=== PATIENT | male | born 1985 | race Caucasian/White ===

== ENCOUNTER 2018-07-04 13:55 | Emergency (ER) | payer MEDICAID, SELFPAY ==
[2018-07-04 13:56] VITALS: BP 136/86; PULSE 94; RESP 16; TEMP 36.3; O2SAT 97; BMI 31.4
--- NOTE | 2018-07-04 15:02 | CT_ITS ---
STUDY: CT ABDOMEN AND PELVIS WITH CONTRAST REASON FOR EXAM: Male, 32 years old. Pain RADIATION DOSAGE (If Supplied By Facility): CTDIvol = ( 15.00 ) mGy, DLP = ( 1151.34 ) mGycm TECHNIQUE: Transaxial images were obtained from the dome of the diaphragm to the symphysis pubis without oral contrast. 100CC ml of Isovue 300 contrast was administered. Sagittal and coronal images were reconstructed. Individualized dose optimization techniques were used for this CT. COMPARISON: None. FINDINGS: The visualized lung bases are clear. The visualized portions of the heart and pericardium are within normal limits. There are no calcified gallstones present. The liver is within normal limits. There are no suspicious hepatic lesions. The spleen is normal in size. The pancreas is within normal limits. The adrenal glands are within normal limits. There are no renal or ureteral stones. There is no hydronephrosis. There are no focal renal lesions. Normal visualized stomach. There is no bowel obstruction or inflammation. The patient is status post appendectomy. The aorta is normal in caliber. There is no abdominal or pelvic free air, free fluid, fluid collection or lymphadenopathy. There are no destructive osseous lesions. CT/Abdomen/Pelvis WITH Contrast IMPRESSION: No acute abdominal or pelvic pathology. Electronically Signed: Chris Hess, at 17:59 EST Tel , Service support ,
--- NOTE | 2018-07-04 15:03 | ED.VISSUMM ---
- ER Visit Summary Date of Service: 07/04/18 Chief Complaint: Abdominal pain History of Present Illness: The patient is a 32 M presenting with abdominal pain. Patient states this started 3 weeks ago. Pain has been intermittent. He has had vomiting and diarrhea. He states he has had 6 episodes of vomiting today and 2 episodes of diarrhea. He has had no blood in his stool or emesis. He went to urgent care and was sent to the ED for further evaluation. He denies fever. Denies urinary complaints. He has a history of previous appendectomy. Physical Examination: Vitals are stable. Patient is afebrile. Alert no acute distress. HEENT exam is unremarkable. Neck is supple. Lungs are clear and equal bilaterally. Heart is regular rate and rhythm. Abdomen is soft epigastric and left lower quadrant tenderness with no rebound or guarding Extremities are unremarkable. Skin is warm and dry. No focal neurologic deficit. Remainder of exam is unremarkable. Emergency Department Course and Treatment: Patient was given IV fluids, Zofran. CBC shows white count 15.8, chemistries show BUN 24. Liver lipase are normal. Urinalysis unremarkable. CT abdomen pelvis shows no acute process. Patient was given a GI cocktail. On reevaluation, he is feeling improved. He is given prescription for Pepcid and Zofran. Advised to follow-up with Dr. Marshall marine consultant for no doc. Advised return to ED if worsening complaints. Disposition: Discharge home Impression: Abdominal pain; vomiting and diarrhea This note was generated with [employer] dictation software. It may contain incorrect words, spelling, and punctuation that were not noted in review of the chart prior to signing ED Disposition - Plan for ED Patient: Chief Complaint: Abd Pain Instructions: ED Abdominal Pain Unkn Cause Prescriptions: Ondansetron [Zofran Odt] 4 mg PO Q8H PRN PRN #10 tablet PRN Reason: Nausea Famotidine [Pepcid] 20 mg PO BID #28 tablet Referrals: Keira Marshall MD [STAFF PHYSICIAN] - NOT,DEFINED [NON-STAFF] -
[2018-07-04 15:43] LABS: Absolute Lymphocyte Count 1.15 X10^3/ul (0.83-4.51); Absolute Neutrophil Count 13.8 X10^3/uL (2.0-7.7); Basophil# 0.06 X10^3/uL; Basophil% 0.4 % (0-1); Eosinophil# 0.14 X10^3/uL; Eosinophils% 0.9 % (0-5); Lymphocyte # 1.15 X10^3/ul (4.0); Lymphocyte % 7.3 % (19-41); Mean Corp Hgb Conc 33.3 g/gl (32-36); Mean Corpuscular Hgb 28.5 pg (27.0-32.0); Mean Corpuscular Volume 85.4 fL (80-94); Mean Platelet Vol. 8.9 fl (6.2-12.0); Monocyte# 0.61 X10^3/uL; Monocyte% 3.9 % (0-10); Neutrophil # 13.84 X10^3/uL (2.7-7.7); Neutrophil % 87.3 % (47-70); Platelet Count 301 K/mm3 (150-450); RBC Distribution Width CV 13.8 % (11.6-14.6); RBC Distribution Width SD 42.9 fl (35.1-43.9); Red Blood Count 5.62 M/mm3 (4.6-6.2); White Blood Count 15.8 K/mm3 (4.4-11.0)
[2018-07-04 15:45] LABS: POSITIVE COUNT NO; POSITIVE DIFFERENTIAL NO; POSITIVE MORPHOLOGY NO
[2018-07-04 16:06] LABS: AST(SGOT) 18 U/L (15-37); Alanine Aminotransfer ALT/SGPT 43 U/L (16-61); Albumin, Serum 4.2 g/dL (3.2-5.0); Alkaline Phosphatase 102 U/L (45-117); Anion Gap 6 (5-15); BUN 24 mg/dL (7-18); BUN/Creat Ratio 19.5 RATIO (10-20); Bilirubin, Direct 0.13 mg/dL (0.00-0.30); Calcium,Total 9.1 mg/dL (8.5-10.1); Chloride 105 mmol/L (98-107); Creatinine, Serum 1.23 mg/dL (0.70-1.30); EST Glomerular Filtration Rate 72 mL/min (>60); Est Glom Filt Rate - Afr Amer 87 mL/min (>60); Estimated Creatinine Clearance 93.76 ml/min; Glucose 99 mg/dL (74-106); Lipase 328 U/L (73-393); Protein, Total 8.2 g/dL (6.4-8.2); Sodium Level 139 mmol/L (136-145)
[2018-07-04] MEDS: 0.9% Normal Saline 1,000 ML 1000 ML IV (16:21)
[2018-07-04] MEDS: Ondansetron 4 MG/2 ML Vial IV (16:21)
[2018-07-04 16:31] VITALS: BP 139/85; PULSE 87; RESP 16; O2SAT 98
[2018-07-04 17:04] LABS: Bacteria 0 SEEN /hpf (None Seen); Mucous, Urine 0 SEEN /hpf (<or=2+); Red Blood Cells-Urine 0 SEEN /hpf (0-5); Squamous Epithelial Cells - UA 0 SEEN /hpf (0-5); White Blood Cells 0 SEEN /hpf (0-5)
[2018-07-04 17:15] LABS: Color, Urine Yellow (Yellow); Glucose, Dipstick Normal (Normal); Ketone-Dipstick Negative (Negative); Leukocyte Esterase-Dipstick Negative /ul (Negative); Nitrite-Dipstick Negative (Negative); Occult Blood-Urine Negative /ul (Negative); Protein-Dipstick 15 mg/dl (Negative); Urine Bilirubin Dipstick Negative (Negative); Urine Clarity Clear (Clear); Urine Urobilinogen Normal (Normal)
[2018-07-04 18:09] VITALS: RESP 18
--- NOTE | 2018-07-04 18:12 | ED.DEP ---
ED Disposition - Plan for ED Patient: Chief Complaint: Abd Pain Instructions: ED Abdominal Pain Unkn Cause Prescriptions: Ondansetron [Zofran Odt] 4 mg PO Q8H PRN PRN #10 tablet PRN Reason: Nausea Famotidine [Pepcid] 20 mg PO BID #28 tablet Referrals: NOT,DEFINED [NON-STAFF] - Keira Marshall MD [STAFF PHYSICIAN] -
[2018-07-04] MEDS: Mag Hydrox/Al Hydrox/Simeth 30 ML UDC PO (18:37)
== END 2018-07-04 18:38 | disposition home or self-care (01) ==
PROVIDERS: Emergency Provider Emergency Medicine
DX: R10.13 Epigastric pain (principal); R10.32 Left lower quadrant pain; R11.10 Vomiting, unspecified; R19.7 Diarrhea, unspecified; Z72.0 Tobacco use
CPT/HCPCS: 74177; 80048; 80076; 81001; 83690; 85025; 96361; 96374; 99284; J7030; A4216; J2405

== ENCOUNTER 2019-12-12 15:36 | Emergency (ER) | payer MEDICAID, SELFPAY ==
[2019-12-12 15:38] VITALS: BP 131/90; PULSE 80; PULSE 85; RESP 17; TEMP 36.7; O2SAT 97; BMI 27.9
--- NOTE | 2019-12-12 16:02 | EKG12_ITS ---
Test Reason : DYSRHYTHMIA Blood Pressure : / mmHG Vent. Rate : 070 BPM Atrial Rate : 070 BPM P-R Int : 136 ms QRS Dur : 088 ms QT Int : 374 ms P-R-T Axes : 048 059 039 degrees QTc Int : 403 ms Normal sinus rhythm Normal ECG Confirmed by JANY COLLINS, JUSTO ([id number]), offline editor ALEXA BLUE ([id number]) on 12/17/2019 8:04:28 AM Referred By: BB Confirmed By:JUSTO CARMICHAEL MD
--- NOTE | 2019-12-12 16:02 | CT_ITS ---
STUDY: CT BRAIN WITHOUT CONTRAST REASON FOR EXAM: Male, 34 years old. Intermittent hemiparesis. Right-sided numbness. Headache. RADIATION DOSAGE (If Supplied By Facility): CTDIvol = ( 44.99 ) mGy, DLP = ( 812.98 ) mGycm TECHNIQUE: Transaxial CT imaging of the brain was performed without administration of intravenous contrast material. Individualized dose optimization techniques were used for this CT. COMPARISON: No relevant priors. FINDINGS: Normal soft tissue structures. Normal calvarium. Normal size ventricles and extra-axial spaces for the patient''s age. Normal white matter tracts of the cerebral hemispheres. Normal basal ganglia and thalami. Normal brainstem. Normal cerebellum. There is no intracranial hemorrhage. There are no findings of an acute ischemic infarction. Normal visualized paranasal sinuses. CT/Brain/Head without Contrast IMPRESSION: Normal unenhanced CT scan of the brain. If there is continued concern for acute stroke, MRI is recommended. Electronically Signed: Vidal Coats DO at 17:12 EDT Tel [phone], Service support ,
--- NOTE | 2019-12-12 16:06 | ED.DCSUM_ITS ---
History of Present Illness Chief Complaint: Neuro S/Sx Informant: Patient Onset: Days - 4 Context: Sudden Onset Timing: Intermittent, Lasts - sometimes minutes, other times hours Quality and Location: Right Arm Parasthesia, Right Leg Parasthesia, Expressive Aphasia Onset: spontaneously at rest Current Severity: Mild - and left side, not right Maximum Severity: Severe Worsened by: nothing in particular Relieved by: nothing in particular Associated Symptoms: Headache, Nausea. Negative for: Vomiting, Chest Pain Narrative: Patient states he has been having headaches for about 2 years, he calls them migraines. States 4 days ago for the first time he developed neurologic symptoms in context of having 1 of these headaches, he has been having a migraine now for about 2 weeks this episode. He states really the headache has not gone away. He was seen in the ER at a hospital elsewhere in [place] up on [facility] in [place] as a result of the symptoms, 4 days ago, which consisted of weakness and numbness in the right leg and arm, marching from the leg up the body to the arm, followed by right facial droop and an expressive aphasia. He was recommended after negative CT and other test that he be transferred to another hospital where neurology was available, but he did not want to and they ended up leaving, he states he had some nausea medicine that made him feel sleepy and they went home. He has no PCP, he was recommended to follow-up. States over the last 3 or 4 days now since then, the right-sided numbness and sometimes weakness has been coming and going, he has had no recurrence of the speech symptoms, and today he has numbness in his left leg and somewhat on the side of his body but not in his arm or face and no weakness or speech issues. He still has a headache. It is bifrontal and retro-orbital. He denies any head trauma recently. Denies any fevers, COVID-19 diagnosis or respiratory symptoms recently or GI symptoms except a nausea associated with a headache, neck stiffness, or IV drug use. Past Medical History - Allergies and Home Meds Allergies/Adverse Reactions: Allergies No Known Allergies Allergy (Verified 12/12/19 15:36) Primary Care Physician: Care Physician,No Primary [Primary Care Provider] - Doctors: none Past Medical History: None Smoking Status: Former smoker Drugs: Marijuana - occasionally; no other drugs Review of Systems General: Denies: Chills, Fever, Sweats Eyes: Denies: Visual changes - bilaterally, Diplopia ENT: Denies: Bilateral ear pain, Rhinorrhea, Sore throat Cardiovascular: Denies: Chest pain, Palpitations Respiratory: Denies: Dyspnea, Cough, Dyspnea on exertion Gastrointestinal: Reports: Nausea. Denies: Abdominal pain, Vomiting, Diarrhea, Melena, Hematochezia Genitourinary: Denies: Dysuria, Hematuria, Frequency Musculoskeletal: Denies: Neck pain, Back pain, Extremity Pain Skin: Denies: Rash, Wounds Neurological: Reports: Headache, - - see HPI for details of sx STROKE Vital Signs/Narrative: Vital Signs Temp Pulse Resp BP Pulse Ox 12/12/19 15:38 98.0 F 85 17 131/90 H 97 Inital Vital Signs reviewed: Yes - NIHSS Initial 1a Level of Consciousness: 0 1b LOC Questions (Score 2 if aphasic/stupor): 0 1c LOC Commands (Only score 1st attempt): 0 2 Best Gaze (If aphasic, use reflexive mvmts.): 0 3 Visual: 0 4 Facial Palsy: 0 5 Motor Arm Right (UN = amputation/fusion): 0 5 Motor Arm Left: 0 6 Motor Leg Right: 0 6 Motor Leg Left: 0 7 Limb ataxia (Only + if out of proportion): 0 8 Sensory (Aphasia/stupor=0 or 1, coma=2): 1 9 Best Language: 0 10 Dysarthria (mute, coma=2, intubated=UN): 0 11 Extinction and Inattention (only scored if +): 0 Total Score: 1 General: Well nourished, Well developed, - - NAD Head: Normocephalic, Atraumatic Eyes: Perrl, EOMI ENT: Moist mucous membranes, No rhinorrhea Neck: Supple, Nontender, No lymphadenopathy Cardiovascular: Regular rate, Regular rhythm, No murmurs Respiratory: No distress, CTA bilaterally, Chest nontender Abdomen: Soft, Nontender, Nondistended, Normal bowel sounds Back: Nontender, Normal Inspection Extremities: Nontender, No edema Skin: Normal color, No rash Neurological: Alert, Oriented x3, Cranial nerves II-XII grossly intact, Normal Strength, Normal Gait, Parasthesia - LLE mild Psychological: Normal affect, Normal Mood Diagnostic/Tx/Re-eval Clinical Impression(s) from Imaging Studies Brain CT 12/12/19 16:02 IMPRESSION: Normal unenhanced CT scan of the brain. If there is continued concern for acute stroke, MRI is recommended. Electronically Signed: Vidal Coats DO at 17:12 EDT Tel [phone], Service support , Brain MRI 12/12/19 17:53 IMPRESSION: Normal unenhanced MRI of the brain. Electronically Signed: Mak Moncada MD at 20:42 EDT Tel , Service support , Brain MRI 12/12/19 17:53 IMPRESSION: Normal unenhanced MRV of the brain. Electronically Signed: Mak Moncada MD at 20:39 EDT Tel , Service support , Laboratory Results 12/12/19 12/12/19 12/12/19 16:15 16:15 16:15 WBC 7.5 RBC 5.54 Hgb 15.7 Hct 48.3 MCV 87.2 MCH 28.3 MCHC 32.5 RDW Std Deviation 42.0 RDW Coeff of Esa 13.2 Plt Count 298 MPV 9.1 Immature Gran % (Auto) 0.400 Neut % (Auto) 58.3 Lymph % (Auto) 31.7 Green % (Auto) 7.6 Eos % (Auto) 1.3 Baso % (Auto) 0.7 Absolute Neuts (auto) 4.4 Absolute Lymphs (auto) 2.39 Nucleated RBC % 0 PT 12.0 INR 0.9 APTT 31.2 Sodium 140 Potassium 3.8 Chloride 106 Carbon Dioxide 28.0 Anion Gap 6 BUN 20 H Creatinine 1.09 Estim Creat Clear Calc 113.05 Est GFR (MDRD) Af Amer 99 Est GFR (MDRD) Non-Af 82 BUN/Creatinine Ratio 18.3 Glucose 99 Calcium 8.9 Troponin I < 0.015 - Rhythm Strip Rhythm Strip: Sinus Rhythm Rate: 70 Ectopy: None - EKG Initial EKG Interpretation: Sinus Rhythm, No Acute Injury Pattern - normal EKG - Medical Decision Making Stroke Team Activated: No - sx over 24 hrs Was Patient considered for Endovascular Intervention?: No IV Alteplase (t-PA) Administered: No - timing Work-up is negative/unremarkable including CT of the head/brain. My suspicion is that the patient is having neurologic symptoms from migraine, however he has been having his headaches for 2 years and never had neurologic symptoms until 4 days ago. Tele-neurology consult was obtained. They recommend getting MRI of the brain without contrast and MRV to rule out acute neurologic foci as well as venous dural thrombosis. If negative, the patient would be able to be safely discharged home with follow-up. Therefore, I thought to obtain a stat MRI/MRV without admitting the patient first since the tech was still there. This was obtained, as above both are normal. Patient was feeling better after Toradol and Reglan until the MRI and the noise that the machine made, which made his headache feel worse. He is otherwise doing well. No vomiting. He will be given a oral Phenergan prior to discharge, as well as a prescription for Reglan and will follow-up with neurology as an outpatient. He is comfortable with that plan. ED Disposition - Plan for ED Patient: Disposition: Home or Assisted Living Diagnosis: Headache, hemiplegic migraine Instructions: ED, Migraine (Classical) Prescriptions: Metoclopramide [Reglan] 10 mg PO Q6H PRN #20 tab PRN Reason: Headache and/or nausea Transmission Status: Pending to [id number] Referrals: Israel Moore MD [STAFF PHYSICIAN] - (call for appt)
[2019-12-12] MEDS: Ketorolac 15 MG/ML Vial IV (16:25)
[2019-12-12] MEDS: Metoclopramide 10 MG/2 ML Vial 5 MG IV (16:25)
[2019-12-12 16:46] LABS: Absolute Lymphocyte Count 2.39 X10^3/uL (0.83-4.51); Absolute Neutrophil Count 4.4 X10^3/uL (2.0-7.7); Basophil# 0.05 X10^3/uL; Basophil% 0.7 % (0-1); Eosinophils% 1.3 % (0-5); Hematocrit 48.3 % (40-54); Hemoglobin 15.7 g/dL (13.0-16.5); Lymphocyte # 2.39 X10^3/ul (4.0); Lymphocyte % 31.7 % (19-41); Mean Corp Hgb Conc 32.5 g/dL (32-36); Mean Corpuscular Hgb 28.3 pg (27.0-32.0); Mean Corpuscular Volume 87.2 fL (80-94); Mean Platelet Vol. 9.1 fl (6.2-12.0); Monocyte# 0.57 X10^3/uL; Monocyte% 7.6 % (0-10); NRBC Flagged by Analyzer 0 % (0-5); Neutrophil % 58.3 % (47-70); Platelet Count 298 K/mm3 (150-450); RBC Distribution Width CV 13.2 % (11.6-14.6); Red Blood Count 5.54 M/mm3 (4.6-6.2); White Blood Count 7.5 K/mm3 (4.4-11.0)
[2019-12-12 16:49] LABS: Anion Gap 6 (5-15); BUN 20 mg/dL (7-18); BUN/Creat Ratio 18.3 RATIO (10-20); Calcium,Total 8.9 mg/dL (8.5-10.1); Chloride 106 mmol/L (98-107); Creatinine, Serum 1.09 mg/dL (0.70-1.30); EST Glomerular Filtration Rate 82 mL/min (>60); Est Glom Filt Rate - Afr Amer 99 mL/min (>60); Estimated Creatinine Clearance 113.05 ml/min; Glucose 99 mg/dL (74-106); Potassium 3.8 mmol/L (3.5-5.1); Sodium Level 140 mmol/L (136-145)
[2019-12-12 16:59] VITALS: O2SAT 98
[2019-12-12 17:03] VITALS: BMI 30.3
[2019-12-12 17:08] LABS: Partial Thromboplast Time 31.2 Seconds (24.1-36.2)
[2019-12-12 17:14] LABS: International Normalized Ratio 0.9
--- NOTE | 2019-12-12 17:24 | ED.RN ---
SOC CONSULT PUT IN
[2019-12-12 17:37] VITALS: BP 127/88; PULSE 77; RESP 14; O2SAT 99
--- NOTE | 2019-12-12 17:53 | MRI_ITS ---
STUDY: MRI BRAIN WITHOUT CONTRAST REASON FOR EXAM: Male, 34 years old. rt sided numbness, weakness, hernandez, rt facial droop, aphasia TECHNIQUE: Standardized multiplanar fat and water weighted pulse sequences were obtained. COMPARISON: CT same day FINDINGS: Normal size of the ventricles and extra-axial spaces for the patient''s age. Normal white matter tracts of the supratentorial brain. Normal bilateral basal ganglia. Normal thalami. There is no extra-axial fluid accumulation. Normal flow voids within the major intracranial circulation suggesting patency by spin echo criteria. Normal sella turcica, pituitary gland, infundibular stalk, optic chiasm and hypothalamus. Normal tectal plate and pineal gland. Normal midbrain, florin and medulla. Normal cerebellum. Normal basal cisterns. Normal bilateral temporal bones. Normal bilateral internal auditory canals. No demonstrated orbital abnormality, within the constraints of a routine brain study. Normal visualized paranasal sinuses. Normal calvarium and skull base. Normal visualized soft tissue structures. Normal visualized upper cervical spine. MRI/Brain without Contrast IMPRESSION: Normal unenhanced MRI of the brain. Electronically Signed: Mak Moncada MD at 20:42 EDT Tel , Service support ,
--- NOTE | 2019-12-12 17:53 | MRI_ITS ---
STUDY: EXAMINATION - MRV BRAIN WITHOUT CONTRAST REASON FOR EXAM: Male, 34 years old. rt sided numbness, weakness, hernandez, rt facial droop, aphasia TECHNIQUE: 3D [id number] (TOF) imaging was performed in a 1.5 lucas MRI scanner. COMPARISON: MRI and CT same day FINDINGS: Normal flow within the superior sagittal sinus. Normal flow within the superficial cortical veins. Normal flow within the paired internal cerebral veins, vein of Bubba and straight sinus. Normal flow within the bilateral transverse and sigmoid sinuses. Normal flow within the bilateral jugular bulbs. MRI/MRV Head Without Contrast IMPRESSION: Normal unenhanced MRV of the brain. Electronically Signed: Mak Moncada MD at 20:39 EDT Tel , Service support ,
[2019-12-12 19:05] VITALS: BP 120/108; PULSE 71; RESP 12; O2SAT 98
[2019-12-12] MEDS: proMETHazine 25 MG Tablet PO (22:16)
[2019-12-12 22:19] VITALS: BP 132/90; PULSE 76; RESP 16; O2SAT 98
== END 2019-12-12 22:21 | disposition home or self-care (01) ==
PROVIDERS: Emergency Provider Emergency Medicine
DX: G43.409 Hemiplegic migraine, not intractable, without status migrainosus (principal); Z87.891 Personal history of nicotine dependence
CPT/HCPCS: 70450; 70544; 70551; 80048; 84484; 85025; 85610; 85730; 93005; 96374; 96375; 99285; A4216